=== PATIENT | male | born 1955 ===

== ENCOUNTER 2025-03-09 12:41 | Outpatient (REF) | payer OTHER, SELFPAY ==
--- OUTSIDE RECORDS SUMMARY | 2025-03-09 15:26 | XMS_ITS | Clinical Summary ---
Author Organization [facility] Address [address] [place] [address] Care Team Providers Care Site Interpreter Name Role Phone Kel Le PA-C Primary Care Provider + [phone] Source Comments PLEASE NOTE, if this patient is a minor, it may be UNLAWFUL to discuss sensitive information that is contained in these records (such as FAMILY PLANNING, MENTAL HEALTH or SUBSTANCE ABUSE) with the minor patient's parent or other person without the patient's specific authorization.[facility] Allergies No known active allergies Medications atorvastatin (LIPITOR) 20 mg tabletIndications: Mixed hyperlipidemia Take 1 Tablet by mouth once daily for 90 days 30 Tablet 2 3 Active MISCELLANEOUS MEDICAL SUPPLY MISCIndications:Ch ronic pain of both knees Please dispense 2 knee braces to be worn daily for knee pain 2 Each 2 3 Active salicylic acid 17 % external solutionIndication s:Splinter in skin Apply topically once daily 10 mL 4 Active lidocaine (LIDODERM) 5 % patchIndications:C hronic right-sided low back pain without sciatica Place 1 Patch onto the skin daily. Apply 1 patch to the affected area for a maximum of 12 hours, followed by removal for 12 hours. 30 Patch 1 4 Active famotidine (PEPCID) 40 mg tabletIndications: Gastroesophageal reflux disease, unspecified whether esophagitis present TAKE 1 TABLET BY MOUTH DAILY 90 Tablet 1 4 Active hydrOXYzine pamoate (VISTARIL) 25 mg capsuleIndications :Anxiety TAKE 1 CAPSULE BY MOUTH NIGHTLY AT BEDTIME NEEDED FOR ANXIETY OR SLEEP 90 Capsule 1 4 Active acetaminophen (TYLENOL) 500 mg tabletIndications: Chronic right-sided low back pain without sciatica,Strain of trapezius muscle, unspecified laterality, initial encounter Take 1 Tablet by mouth every 6 (six) hours as needed for pain 90 Tablet 1 4 Active ibuprofen 600 mg tabletIndications: Chronic right-sided low back pain without sciatica,Strain of trapezius muscle, unspecified laterality, initial encounter Take 1 Tablet by mouth 4 (four) times daily as needed for pain 180 Tablet 1 4 Active capsaicin (ZOSTRIX) 0.075 % creamIndications:S train of trapezius muscle, unspecified laterality, initial encounter Apply topically 3 (three) times daily 60 g 2 4 Active baclofen 5 mg tabIndications:Chr onic right-sided low back pain without sciatica TAKE 1 TABLET BY MOUTH TWICE DAILY NEEDED FOR BACK PAIN 60 Tablet 2 4 Active lisinopriL 10 mg tabletIndications: Benign essential HTN Take 1 Tablet by mouth once daily 90 Tablet 1 5 Active carbamide peroxide (DEBROX) 6.5 % otic solutionIndication s:Bilateral impacted cerumen Place 5 Drops into both ears 2 (two) times daily 15 mL 5 Active Active Problems Problem Noted Date Diagnosed Date Chronic right-sided low back pain without sciati ca 07/16/2024 Internal hemorrhoids 08/26/2019 Overview (08/26/2019): As per colonoscopy report [facility] 08/20/2019. Hypercholesterolemia 06/30/2019 Bilateral eye strain 03/03/2018 Overview (03/03/2018): [facility]: [facility] Bilateral presbyopia 03/03/2018 Overview (03/03/2018): Exam Date: 12[facility]20/[facility] Hypermetropia of both eyes 03/03/2018 Overview (03/03/2018): Exam Date: 12[facility]20[facility] Regular astigmatism of both eyes 03/03/2018 Overview (03/03/2018): Exam Date: 12[facility]20[facility] History of surgical procedure 02/05/2018 Overview (02/05/2018): Date of Operation: 01/30/2018-Per [facility]. Open repair of umbilical hernia with mesh. Fear of needles 06/05/2017 Encounters Date Type Department Care Team Description 02/17/2025 Results Follow-Up [address] [phone] Theo Stevens FNP 02/01/2025 1:20 PM EDT Office Visit [address] [phone] Tyler Vargas RN Primary hypertension (Primary Dx) 01/18/2025 1:20 PM EST Office Visit [address] [phone] Kel Le PA-C Chronic right-sided low back pain without sciatica (Primary Dx); Strain of trapezius muscle, unspecified laterality, initial encounter; Mixed hyperlipidemia; Vitamin D deficiency; Benign essential HTN; Encounter for abdominal aortic aneurysm (AAA) screening; Tinnitus of right ear; Hearing loss of right ear, unspecified hearing loss type; Bilateral impacted cerumen; History of smoking from Last 3 Months Immunizations Immunization Administration Dates Next Due Hep B, Adult/Adol (ENERGIX/RECOMBIVAX) 8,12/05/2017,11/04/2017 PFIZER COVID VACCINE, PURPLE CAP, 12+ 11/29/2021 ,04/19/2021,03/29/2021 TDAP 12/29/2020 ZOSTER VACCINE, RECOMBINANT (SHINGRIX) 1,08/03/2021 Family History Medical History Relation Name Comments Heart Problems Father Hypertension Mother Kidney disease Mother Breast cancer Sister x 2 sisters Relation Name Status Comments Brother Alive 27 brothers and sisters - Father Alive Mother Sister Alive Social History Tobacco Use Types Packs/Day Years Used Date Smoking Tobacco: Former Smokeless Tobacco: Never Tobacco Cessation:Counseling Given: Not Answered Alcohol Use Standard Drinks/Week Comments Not Currently 8 (1 standard drink = 0.6 oz pur e alcohol) 6-8 beer sometimes Social Connections Answer Date Recorded Connectedness 0 10/24/2023 Financial Resource Strain Answer Date R ecorded Financial Resource Strain 0 2022 Stress Answer Date Recorded Stress 0 10/24/2023 Physical Activity Answer Date Recorded Physical Activity 0 07/19/2019 Food Insecurity Answer Date Recorded Food 0 10/24/2023 Transportation Needs Answer Date Record ed Transportation 0 10/24/2023 Housing Stability Answer Date Recorded Housing 0 10/24/2023 Safety and Environment Answer Date Arsh rded Safety 0 10/24/2023 Utilities Answer Date Recorded Utilities 0 10/24/2023 Employment Answer Date Recorded Stress 0 02/12/2022 Sex and Gender Information Value Date Recorded Sex Assigned at Male 11/04/2017 11:26 AM PST Legal Sex Male 6:54 AM PDT Gender Identity Male 11/04/2017 11:26 AM PST Sexual Orientation Straight 11/04/2017 11 :26 AM PST Last Filed Vital Signs Vital Sign Reading Time Taken Comments Blood Pressure 144/86 02/01/2025 1:53 PM EDT Pulse 82 02/01/2025 1:53 PM EDT Temperature 36.7 ??C (98 ??F) 01/18/2025 1:38 PM EST Respiratory Rate 16 01/18/2025 1:38 PM EST Oxygen Saturation 98% 02/01/2025 1:53 PM EDT Inhaled Oxygen Concentration - - Weight 68.9 kg (152 lb) 01/18/2025 1:38 PM EST Height 165.1 cm (5' 5 ) 01/18/2025 1:38 PM EST Body Mass Index 25.29 01/18/2025 1:38 PM EST Plan of Treatment Health Maintenance Due Date Last Done Comments CT Colonography 2001 FIT/gFOBT 2001 Fecal DNA 2001 Flexible Sigmoidoscopy 2001 Imm-Pneumococcal 65+ (1 of 1 - PCV) 2006 Falls Prevention 05/10/2023 05/10/2022 [id number] ( season) 2024 11/29/2021, 04/19/2021, 03/29/2021 Imm-Influenza (#1) 2024 Medicare Annual Wellness Visit 10/24/2024 1 12/24/2022, 11/23/2021, 12/29/2020, Additional history exists Tobacco Screening 05/01/2025 05/01/2024 Diabetes Screening 02/19/2027 02/20/2024, 0 02/28/2022, 09/11/2021, Additional history exists Lipid Screening 02/19/2027 02/20/2024, 04/0 04/2022, 09/11/2021, Additional history exists Colonoscopy 08/20/2029 08/20/2019 Colorectal Cancer Screening 08/20/2029 Imm-DTaP/Tdap/Td (2 - Td or Tdap) 12/29/2030 021 Imm-Hepatitis B Completed 05/05/2018, 11/25, 11/04/2017 Hepatitis C Screening Completed 06/25/2019, 017 Imm-Zoster, Recombinant Completed 11/23/2021, 08/03 Alcohol and Drug Screen Completed 01/18/20 25, 07/16/2024, 05/01/2024, Additional history exists Depression Annual Screen Completed 025, 01/06/2018, 06/05/2017 Abdominal Aortic Aneurysm Screening Completed 02/15/2025 Procedures Procedure Name Priority Date/Time Associated Diagnosis Comments US ABDOMINAL AORTA REAL TIME SCREEN STUDY AAA Routine 02/15/2025 3:00 AM EDT Encounter for abdominal aortic aneurysm (AAA) screening History of smoking COMPREHENSIVE METABOLIC PANEL Routine 02/20/2024 11:44 AM EDT Mixed hyperlipidemia LIPID PANEL Routine 02/20/2024 11:44 AM EDT Mixed hyperlipidemia COLONOSCOPY Routine 08/20/2019 9:23 AM EDT HEPATITIS A,B,C PANEL Routine 06/25/2019 11:48 AM EDT Routine general medical examination at a health care facility from Last 3 Months or Most Recently Relevant to Health Maintenance Results * US ABDOMINAL AORTA REAL TIME SCREEN STUDY AAA (02/15/2025 3:00 AM EDT) 02/15/2025 3:00 AM EDT Impressions [facility] DIAGNOSTIC IMAGING - 02/15/2025 6:41 PM EDT IMPRESSION: ? No aneurysm is identified within the visualized portions of the abdominal aorta. Boyd Calvert MD Society For Vascular Surgery Practice Guidelines For Imaging Surveillance Of Abdominal Aortic Aneurysms: ?? Size between 2.6 and 2.9 cm - Every 10 years Size between 3.0 and 3.9 cm - Every 3 years Size between 4.0 and 4.9 cm - Every 12 months Size between 5.0 and 5.4 cm - Every 6 months Size of 5.5 cm or more - Surgical consult is advised Please Note: Size between 5.0 and 5.4 cm may benefit from repair in young healthy patients, particularly female. ??Surgical consult may be appropriate. ?? (Bunny Gonzalez MD, PhD, et al,?? The Society for Vascular Surgery Practice Guidelines on the care of patients with abdominal aortic aneurysm. J Vasc Surg.?? 2018, Issue 1,Vol 67, pp2-77.e2.) Signed by Boyd Calvert MD Read by: BOYD CALVERT MD Reviewed and Electronically Signed by: BOYD CALVERT MD [facility] DIAGNOSTIC IMAGING - 02/15/2025 6:41 PM EDT Original Report PROCEDURE: ??US AAA SCREENING INDICATION: ??AAA screening. ??Abdominal pain. ??Nicotine dependence. TECHNIQUE: ??Real-time grayscale, color and spectral doppler ultrasound of the abdominal aorta and iliac arteries was performed. COMPARISON: ??None available. FINDINGS: ? The aorta measures 2.3 x 2.4 cm, 1.6 x 2.2 cm, and 1.4 x 1.4 cm in its proximal, mid and distal aspects, respectively. There is no aneurysm evident. ??The aorta demonstrated normal color and spectral Doppler flow. ?? The right iliac artery measures 1.0 x 1.0 cm and the left iliac artery measures 0.8 x 1.0 cm. Procedure Note Default, [facility] Provider - 02/15/2025 Original Report PROCEDURE: US AAA SCREENING INDICATION: AAA screening. Abdominal pain. Nicotine dependence. TECHNIQUE: Real-time grayscale, color and spectral doppler ultrasound of the abdominal aorta and iliac arteries was performed. COMPARISON: None available. FINDINGS: The aorta measures 2.3 x 2.4 cm, 1.6 x 2.2 cm, and 1.4 x 1.4 cm in its proximal, mid and distal aspects, respectively. There is no aneurysm evident. The aorta demonstrated normal color and spectral Doppler flow. The right iliac artery measures 1.0 x 1.0 cm and the left iliac artery measures 0.8 x 1.0 cm. IMPRESSION: IMPRESSION: No aneurysm is identified within the visualized portions of the abdominal aorta. Boyd Calvert MD Society For Vascular Surgery Practice Guidelines For Imaging Surveillance Of Abdominal Aortic Aneurysms: Size between 2.6 and 2.9 cm - Every 10 years Size between 3.0 and 3.9 cm - Every 3 years Size between 4.0 and 4.9 cm - Every 12 months Size between 5.0 and 5.4 cm - Every 6 months Size of 5.5 cm or more - Surgical consult is advised Please Note: Size between 5.0 and 5.4 cm may benefit from repair in young healthy patients, particularly female. Surgical consult may be appropriate. (Bunny Gonzalez MD, PhD, et al,?? The Society for Vascular Surgery Practice Guidelines on the care of patients with abdominal aortic aneurysm. J Vasc Surg.?? 2018, Issue 1,Vol 67, pp2-77.e2.) Signed by Boyd Calvert MD Read by: BOYD CALVERT MD Reviewed and Electronically Signed by: BOYD CALVERT MD us Theo [facility]ER[facility] IMG ULTRASOUND Edited Re sult - Final [facility] Corporate Office [address], [address] [place] [address], [place] [phone] * (ABNORMAL) LIPID PANEL (02/20/2024 11:44 AM EDT) CHOLESTEROL, TOTAL 187 <200 mg/dL [facility] ([email or web address]) [facility] HDL CHOLESTEROL 56 > OR = 40 mg/dL [facility] TRIGLYCERIDES 114 <150 mg/dL [facility] ([email or web address]) [facility] LDL-CHOLESTEROL 109(H) 99 mg/dL (calc) [facility] ([email or web address]) [facility] Comment: Reference range: <100 Desirable range <100 mg/dL for primary prevention; ?? <70 mg/dL for patients with CHD or diabetic patients with > or = 2 CHD risk factors. LDL-C is now calculated using the Catrachita calculation, which is a validated novel method providing better accuracy than the Friedewald equation in the estimation of LDL-C. Martin WILD et al. AUDREY. 2013;310(19): 3588-0698 (http://education.Tomorrow/faq/NTP233) CHOL/HDLC RATIO 3.3 <5.0 (calc) [facility] NON-HDL CHOLESTEROL 131(H) <130 mg/dL (calc) [facility] Comment: For patients with diabetes plus 1 major ASCVD risk factor, treating to a non-HDL-C goal of <100 mg/dL (LDL-C of <70 mg/dL) is considered a therapeutic option. Blood Blood / Unknown 02/20/2024 1 1:44 AM EDT 02/20/2024 11:45 AM EDT us Kel Le PA-C LAB - BLOOD DRAW Final Resul t [facility] ([email or web address]) [address] [address], [email or web address]) [address] [address] * COMPREHENSIVE METABOLIC PANEL (02/20/2024 11:44 AM EDT) Pathologist [facility] GLUCOSE 87 65 - 99 mg/dL [facility] Comment: ?Fasting reference interval UREA NITROGEN (BUN) 17 7 - 25 mg/dL [email or web address]) [facility] CREATININE (blood) 0.98 0.70 - 1.35 mg/dL [facility] ([email or web address]) [facility] EGFR 85 > OR = 60 mL/min/1. 73m2 [facility] ([email or web address]) [facility] BUN/CREATININE RATIO SEE NOTE: [email or web address] Comment: ?? Not Reported: BUN and Creatinine are within ?? reference range. ? SODIUM 140 135 - 146 mmol/L [facility] ([email or web address]) [facility] POTASSIUM 4.6 3.5 - 5.3 mmol/L [facility] ([email or web address]) [facility] CHLORIDE 105 98 - 110 mmol/L [facility] ([email or web address]) [facility] CARBON DIOXIDE 30 20 - 32 mmol/L [facility] ([email or web address]) [facility] CALCIUM 9.0 8.6 - 10.3 mg/dL [facility] ([email or web address]) [facility] PROTEIN, TOTAL 7.3 6.1 - 8.1 g/dL [facility] ([email or web address]) [facility] ALBUMIN 4.3 3.6 - 5.1 g/dL [facility] ([email or web address]) [facility] GLOBULIN 3.0 1.9 - 3.7 g/dL (calc) [facility] ([email or web address]) [facility] ALBUMIN/GLOBULI N RATIO 1.4 1.0 - 2.5 (calc) [facility] ([email or web address]) [facility] BILIRUBIN, TOTAL 0.8 0.2 - 1.2 mg/dL [facility] ([email or web address]) [facility] ALKALINE PHOSPHATASE 51 35 - 144 U/L [facility] ([email or web address]) [facility] AST 16 10 - 35 U/L [facility] ([email or web address]) [facility] ALT 27 9 - 46 U/L [facility] ([email or web address]) [facility] Blood Blood / Unknown 02/20/2024 1 1:44 AM EDT 02/20/2024 11:45 AM EDT Kel Le PA-C LAB - BLOOD DRAW Edited Resu lt - Final [facility] ([email or web address]) [address] [address], [email or web address]) [address] [address] * COLONOSCOPY (08/20/2019 9:23 AM EDT) Impressions Monserrat Blackwell MA - 08/20/2019 9:23 AM EDT As per [facility] internal hemorrhoids. No specimens collected. Repeat in 10 years. us Provider [facility] PROCEDURES Final Result * (ABNORMAL) HEPATITIS A,B,C PANEL (06/25/2019 11:48 AM EDT) HEPATITIS B SURFACE ANTIBODY NEGATIVE NEGATIVE [facility] HEPATITIS B SURFACE ANTIGEN NEGATIVE NEGATIVE [facility] Comment: Over the counter supplements containing high doses of biotin may interfere with this assay. ??If interference is suspected, patients shoud be retested after refraining from biotin supplements for 72 hours. HEPATITIS C VIRUS DIAGNOSTIC NEGATIVE NEGATIVE [facility] HEPATITIS B CORE ANTIBODY NEGATIVE NEGATIVE [facility] HEPATITIS A ANTIBODY TOTAL POSITIVE(A) NEGATIVE [facility] Comment: Over the counter supplements containing high doses of biotin may interfere with this assay. ??If interference is suspected, patients shoud be retested after refraining from biotin supplements for 72 hours. Blood specimen (specimen) Blood / Unknown 06/25/2019 11:48 AM EDT 06/25/2019 4:00 PM EDT Narrative [facility] - 06/25/2019 4:47 PM EDT [employer], [place] [address] Seed Cleaning Manager - Rukhsana Mendoza MD PT ID [id number] ORD# [id number] Joanna BABCOCK LAB - BLOOD [place]RAW [place] [address], from Last 3 Months or Most Recently Relevant to Health Maintenance Insurance [facility] [place] [address] Member Subscriber Plan / Payer (Ef fective 2022-Present) Name:Gabriel Cottrell Relation to Subscriber:Self Name:Gabriel Cottrell Payer ID:[id number] Group ID:Not on file Type:Indemnity Address: [facility] [address] [address] Care Teams Site Interpreter Relationship Specialty Start Date End Date Kel Le PA-C [address] [place] [address] PCP - General FAMILY MEDICINECHAD 09/26/20
--- OUTSIDE RECORDS SUMMARY | 2025-03-09 15:26 | XMS_ITS | Encounter Summary ---
Author Organization [facility] Address [address] [place] [address] 7 [place] [address] Care Team Providers Care Statement Clerks Supervisor Name Role Phone Unavailable Primary Care Provider Unavailabl e Encounter Details Date Type Department Care Team (Latest Contact Info) Description 09/23/2019 Abstract [facility] CONVERSIONS Dental, Provider, DDS Social History Tobacco Use Types Packs/Day Years Used Date Smoking Tobacco: Never Assessed Sex and Gender Information Value Date Recorded Sex Assigned at Male 09/24/2022 10:34 AM EDT Legal Sex Male 10:34 AM EDT Gender Identity Not on file Sexual Orientation Not on file documented as of this encounter Plan of Treatment Not on file documented as of this encounter Visit Diagnoses Not on filedocumented in this encounter
--- OUTSIDE RECORDS SUMMARY | 2025-03-09 15:26 | XMS_ITS | Clinical Summary ---
Author Organization [facility] Address [address] [facility] [address]t [place] [address] Care Team Providers Care Services Advisor Name Role Phone Unavailable Primary Care Provider Unavailabl e Social History Tobacco Use Types Packs/Day Years Used Date Smoking Tobacco: Never Assessed Sex and Gender Information Value Date Recorded Sex Assigned at Male 09/24/2022 10:34 AM EDT Legal Sex Male 10:34 AM EDT Gender Identity Not on file Sexual Orientation Not on file Plan of Treatment Health Maintenance Due Date Last Done Comments CT Colonography 1956 Colonoscopy 1956 Colorectal Cancer Screening 1956 Depression Screening 1956 FIT DNA/Cologuard 1956 FIT 1956 FOBT 1956 Lipid Panel 1956 Sigmoidoscopy 1956 Alcohol/Substance Use Screening 1968 Tobacco Screening 1968 DTaP/Tdap/Td Vaccines (1 - Tdap) 1975 Pneumococcal Vaccine: 50+ Ye ars (1 of 1 - PCV) 2006 Zoster Vaccines (1 of 2) 2006 COVID-19 Vaccine ( - 2023-2 5 season) 2024 Influenza Vaccine (#1) 2024 RSV Patients and Pa tients Aged 60 years or older (1 - 1-dose 75+ series) 2031 HIB Vaccines Aged Out No longer eligi ble based on patient's age to complete this topic HPV Vaccines Aged Out No longer eligi ble based on patient's age to complete this topic Hepatitis A Vaccines Aged Out No long er eligible based on patient's age to complete this topic Hepatitis B Vaccines Aged Out No long er eligible based on patient's age to complete this topic IPV Vaccines Aged Out No longer eligi ble based on patient's age to complete this topic Meningococcal Vaccine Aged Out No ty sharif eligible based on patient's age to complete this topic RSV under 20 months Aged Out No longe r eligible based on patient's age to complete this topic Rotavirus Vaccines Aged Out No longer eligible based on patient's age to complete this topic
--- OUTSIDE RECORDS SUMMARY | 2025-03-09 15:26 | XMS_ITS | Encounter Summary ---
Author Organization [facility] Address [address] [place] [address] 7 [place] [address] Care Team Providers Care Bath Solution Maker Name Role Phone Unavailable Primary Care Provider Unavailabl e Encounter Details Date Type Department Care Team (Latest Contact Info) Description 03/16/2019 Abstract [facility] CONVERSIONS Dental, Provider, DDS Social History Tobacco [...]
--- OUTSIDE RECORDS SUMMARY | 2025-03-09 15:26 | XMS_ITS | Clinical Summary ---
Author Organization [facility] Address [address] [place] [address] Phone Care Team Providers Care Programmer Analyst Name Role Phone Joanna Herbert YOKO Primary Care Provider [phone] Surgical History Surgery Date Site/Laterality Comments HERNIA REPAIR PROCEDURE: HISTORICAL HERNIA REPAIR/UMB; COMMENT: w/ mesh. Medical History Medical History Date Comments Depression 08/07/2019 DX:Depression Colon polyp 08/23/2017 DX:Colon polyp Internal hemorrhoids 08/23/2017 DX:Internal hemorrhoids Family History Medical History Relation Name Comments Breast cancer Sister Relation Name Status Comments Sister Social History Tobacco Use Types Packs/Day Years Used Date Smoking Tobacco: Never Smokeless Tobacco: Never Alcohol Use Standard Drinks/Week Comments Never 0 (1 standard drink = 0.6 oz pur e alcohol) Sex and Gender Information Value Date Recorded Sex Assigned at Not on file Legal Sex Male 6:16 PM EST Gender Identity Not on file Sexual Orientation Not on file Obstetrics History Last Filed Vital Signs Vital Sign Reading Time Taken Comments Blood Pressure 126/68 05/30/2022 11:14 AM EDT Pulse 86 05/30/2022 11:14 AM EDT Temperature - - Respiratory Rate - - Oxygen Saturation - - Inhaled Oxygen Concentration - - Weight 68 kg (150 lb) 05/30/2022 11:14 AM EDT Height 165.1 cm (5' 5 ) 05/30/2022 11:14 AM EDT Body Mass Index 24.96 05/30/2022 11:14 AM EDT Plan of Treatment Health Maintenance Due Date Last Done Comments DTaP,Tdap,and Td Vaccines (1 - Tdap) 1975 Pneumococcal Vaccine: 50+ Years (1 of 1 - PCV) 2006 Zoster Vaccines (1 of 2) 2006 Abdominal Aortic Aneurysm (AAA) Screen 11/04/2022 Cholesterol Screening (Lipid Panel) 11/04/2022 Colorectal Cancer Screening: Colonoscopy 11/04/2022 Depression Screening 11/04/2022 Falls Risk Assessment 11/04/2022 Hepatitis C Screening 11/04/2022 Social Influencers of Health Screening 11/04/2022 COVID-19 Vaccine ( - 2023-2 5 season) 2024 Influenza Vaccine (Season Ended) 2025 RSV Immunization Adult Patients (1 - 1-dose 75+ series) 2031 Hepatitis B Vaccines Completed 05/05/2018, 12/05/2017, 11/04/2017 HIB Vaccines Aged Out No longer eligi [...] on patient's age to complete this topic MMR Vaccines Aged Out No longer eligi ble based on patient's age to complete this topic Meningococcal ACWY Vaccine Aged Out N o longer eligible based on patient's age to complete this topic Meningococcal B Vaccine Aged Out No l onger eligible based on patient's age to complete this topic RSV Immunization Patients Under 20 months Aged Out No longer eligible b ased on patient's age to complete this topic Varicella Vaccines Aged Out No longer eligible based on patient's age to complete this topic [place] [address] [place] [address] Member Subscriber Plan / Payer (Ef fective 2025-Present) Name:Gabriel Cottrell Relation to Subscriber:Self Name:Gabriel Cottrell Payer ID:[id number] Group ID:Not on file Type:Not on file Address: [place] [address] [address] Advance Directives Documents on File Type Date Recorded Patient Coil Wrapper Expl anation Health Care Decision (hx) 05/01/2022 AD BARBER DIRECTIVE Health Care Decision (hx) 05/01/2022 AD BARBER DIRECTIVE Health Care Decision (hx) 05/01/2022 AD BARBER DIRECTIVE Health Care Decision (hx) 05/01/2022 AD BARBER DIRECTIVE Care Teams Programmer Analyst Relationship Specialty Start Date End Date Joanna Herbert FNP [address] [place] [address] PCP - General Internal Medicine 06/25/19
--- OUTSIDE RECORDS SUMMARY | 2025-03-09 15:26 | XMS_ITS | Encounter Summary ---
Author Organization [facility] Address [address] [place] [address] Care Team Providers Care Wood Polisher Name Role Phone Kel Le PA-C Primary Care Provider + [phone] Encounter Details Date Type Department Care Team ([facility] st Contact Info) Description 02/17/2025 Results Follow-Up [facility] [address] [place] [id number] Theo Stevens FNP [address] [place] [address] Social History Tobacco Use Types Packs/Day Years Used Date Smoking Tobacco: Former Smokeless Tobacco: Never Alcohol Use Standard Drinks/Week Comments Not Currently [...] Orientation Straight 11/04/2017 11 :26 AM PST documented as of this encounter Miscellaneous Notes * Result Encounter Note - YOKO Gann - 02/17/2025 10:36 AM EDT Ultrasound was normal documented in this encounter Plan of Treatment Not on file documented as of this encounter Visit Diagnoses Not on filedocumented in this encounter Additional Health Concerns Assessment Noted Time PHQ-9 Depression Total Score: 7 01/18/20 25 1:37 PM PST documented as of this encounter Care Teams Wood Polisher Relationship Specialty Start Date End Date Kel Le PA-C [facility] [place] [address] PCP - General FAMILY MEDICINECHAD 09/26/20 documented as of this encounter
== END 2025-03-09 12:42 | disposition home or self-care (01) ==
LOC: HO.SH 12:41
PROVIDERS: Visit Provider Physician Assistant Medical
DX: Z01.118 Encounter for examination of ears and hearing with other abnormal findings (principal); H90.3 Sensorineural hearing loss, bilateral
CPT/HCPCS: 92557; 92567